=== PATIENT | male | born 1960 | race Caucasian/White ===

== ENCOUNTER 2024-07-07 19:57 | Inpatient (IN) ==
[2024-07-07] MEDS: SODIUM CHLORIDE 0.9% 500 ML IV ONE (20:19)
[2024-07-07] MEDS: MAGNESIUM SULFATE / D5W 1 GM/100 ML BAG IV STA (20:19)
[2024-07-07] MEDS: dilTIAZem HCl 5 MG/ML 5 ML VIAL IV STA ×2 (20:19→21:11)
[2024-07-07 20:32] LABS: Basophils # (auto) 0.02 K/uL (0.00-0.20); Basophils % (auto) 0.2 %; Eosinophils # (auto) 0.04 K/uL (0.00-0.50); Eosinophils % (auto) 0.5 %; Hematocrit (blood only) 44.3 % (42.0-52.0); Hemoglobin 15.3 g/dl (14.0-18.0); Immature Granulocytes # (auto) 0.03 K/uL (0.01-0.20); Immature Granulocytes % (auto) 0.4 %; Lymphocytes # (auto) 0.82 K/uL (1.20-3.40); Lymphocytes % (auto) 9.6 %; Mean Corpuscular Hemoglobin 30.1 pg (25.0-34.0); Mean Corpuscular Hgb Conc 34.5 g/dL (32.0-36.0); Mean Corpuscular Volume 87.2 fL (80.0-100.0); Mean Platelet Volume 9.1 fL (9.4-12.4); Monocytes # (auto) 0.97 K/uL (0.11-0.59); Monocytes % (auto) 11.4 %; Neutrophils # (auto) 6.65 K/uL (1.40-6.50); Neutrophils % (auto) 77.9 %; Platelet Count 275 K/uL (130-400); RDW Coefficient of Variation 11.6 % (11.5-14.5); RDW Standard Deviation 37.3 fL (36.4-46.3); Red Blood Count 5.08 M/uL (4.70-6.10); White Blood Count 8.53 K/ul (4.8-10.8)
[2024-07-07] MEDS: LORazepam 1 MG/1 ML SYR ED Inj Use IV STA (20:37)
--- NOTE | 2024-07-07 20:43 | Emergency Department Note ---
Impression & Plan Atrial fibrillation with rapid ventricular response, New onset a-fib, Heart palpitations, Anxiety ED Provider Note NAME: BETTY ENRIQUEZ AGE: 64 SEX: M : 1960 ARRIVES VIA: Walk-In INFORMANT: Patient, ED PROVIDER(S): Mario Andrea DO CHIEF COMPLAINT: Palpitations HPI: The patient is a 64-year-old male who presented to the emergency department for an evaluation of palpitations. The patient started noticing palpitations over the course the last 24 hours. He denies having any chest pain. He does feel anxiety. He denies having any shortness of breath or leg swelling. He has no history of similar dysrhythmia in the past. ROS: See above HPI for pertinent positives & negatives. A total of 10 systems reviewed and were otherwise negative. PAST MEDICAL HISTORY: See Below PAST SURGICAL HISTORY: See Below FAMILY HISTORY: See Below SOCIAL HISTORY: See Below HOME MEDICATIONS: See Below ALLERGIES: See Below VITALS: See Below PHYSICAL EXAMINATION: GENERAL: Patient is awake alert in no acute distress patient is resting comfortably and showing no signs of anxiety EYES: The conjunctivae are clear. The pupils are round and reactive. EARS, NOSE, MOUTH AND THROAT: The nose is without any evidence of any deformity. Mucous membranes are moist. Tongue is midline. NECK: The neck is nontender and supple. RESPIRATORY: Normal respiratory effort is noted there is no evidence of wheezing rhonchi or rales CARDIOVASCULAR: Tachycardia cardiac and regular heart sounds were noted to auscultation. There is no definite murmur. GASTROINTESTINAL: The abdomen is soft. Abdomen is nontender. MUSCULOSKELETAL/EXTREMITIES: There is no evidence of gross deformity full range of motion is noted in the hips and shoulders. SKIN: There is no obvious evidence of any rash. There are no petechiae, pallor or cyanosis noted. NEUROLOGIC: Patient is awake alert and oriented x3 MEDICAL DECISION MAKING: The is a 64-year-old male who presented to the emergency department for an evaluation of palpitations. The patient was found to be in rapid atrial fibrillation when he first arrived at the emergency department. He did have 1 episode where he may have had SVT. He was treated with IV Cardizem IV fluids and IV magnesium in the emergency department. On reevaluation his rate had improved but he continued to be in atrial fibrillation. I discussed the patient's laboratory and radiographic studies with him. At this time I do feel the patient would be a better candidate for inpatient management especially given his ongoing atrial fibrillation. It is unclear exactly when this started. The patient may require further workup as well as treatment with anticoagulants. I discussed the patient's diagnosis with him. I discussed his condition with the on-call [facility]. Triage Nursing notes reviewed. Prior medical records reviewed Vital Signs: reviewed and remarkable for tachycardia. Differential diagnosis: Premature contractions, electrolyte abnormality, cardiac dysrhythmia, thyroid dysfunction, pulmonary embolism, infection, gastrointestinal, as well as other pathologies. ER treatment provided: See below Diagnostics interpreted by me: ECG: EKG was obtained in the emergency department. My interpretation is atrial fibrillation at 132 bpm. No PVCs were noted. Nonspecific ST depressions were noted. No previous tracing was available. A second EKG was obtained in the emergency department. My interpretation is atrial fibrillation at 147 bpm. There is no ectopy. Continued ST depressions were noted. This compares similar to the initial tracing. Cardiac Monitoring: An order was placed for continuous cardiac monitoring. The monitor shows a rate of 120 bpm with atrial fibrillation and RVR. Laboratory studies: As stated above and show below. Imaging studies: See below. Radiographic imaging was reviewed by myself Consultation(s): I discussed this case with Dr. Mike who is on-call for the [facility] group. ED COURSE: Procedures: none Critical Care: I have personally spent greater than 35 minutes of critical care time in the direct management of this patient. This includes bedside care, interpretation of diagnostic studies, and testing, discussion with consultants, patient, and family members, and other required patient management activities. This 35 minutes is in excess of all separately billable procedures. Past Med/Surg History Problem List (Updated 07/08/24 @ 00:42 by Mairo Andrea DO) Anxiety (Acute) Heart palpitations (Acute) Atrial fibrillation with rapid ventricular response (Acute) New onset a-fib (Acute) Premature ejaculation Erectile dysfunction Cyst of epididymis determined by ultrasound Medical History Clavicle fracture Epididymitis Surgical History History of mandibular surgery Family History Father Prostate cancer Hypertension Heart disease Mother Hypertension Social History Smoking Status: Never smoker Tobacco Type: Declines Hx Alcohol Use: Yes Alcohol type: beer and wine Hx Substance Use: No Preferred Language: Marshallese Communication Ability: Effective Snowboarder Required: No Beliefs That Will Affect Care: None Current Living Situation: Parent Other Information That Helps Us Care for You: No Feels Safe at Home: Yes Safety Concerns: Feels Safe At This Time Assistive Devices: Glasses Allergies Allergies Allergy/AdvReac Type Severity Reaction Status Date / Time amoxicillin Allergy Mild Verified 05/22/23 10:13 sulfamethoxazole AdvReac Mild Verified 05/22/23 10:13 [From Bactrim] trimethoprim [From Bactrim] AdvReac Mild Verified 05/22/23 10:13 Home Meds Home Medications Medication Instructions Recorded Confirmed amlodipine 5 mg tablet 5 mg PO DAILY 07/07/24 07/07/24 losartan 50 mg tablet 50 mg PO DAILY 07/07/24 07/07/24 Results & Data (ED) Vital Signs Vital Signs - 24 hr 07/07/24 20:05 07/07/24 20:11 07/07/24 20:19 Temperature 36.6 C Temperature Source Temporal Artery Scan Pulse Rate 147 H 140 H Pulse Rate [Apical] Pulse Rate from SpO2 Sensor Respiratory Rate 18 Respiratory Depth Normal Blood Pressure 175/100 H Blood Pressure [Left Arm] Blood Pressure Mean 125 Blood Pressure Mean [Left Arm] Pulse Oximetry 97 Oxygen Delivery Method Room Air Room Air Sepsis Recent Fever Within 48 Hours No Sepsis New/Unexplained Change in Mental Status No Sepsis Action Taken by Nursing No Action Required 07/07/24 20:21 07/07/24 20:23 07/07/24 20:24 Temperature Temperature Source Pulse Rate 164 H 193 H Pulse Rate [Apical] 145 H Pulse Rate from SpO2 Sensor Respiratory Rate 20 Respiratory Depth Blood Pressure Blood Pressure [Left Arm] 185/110 H Blood Pressure Mean Blood Pressure Mean [Left Arm] 135 Pulse Oximetry 98 Oxygen Delivery Method Room Air Sepsis Recent Fever Within 48 Hours Sepsis New/Unexplained Change in Mental Status Sepsis Action Taken by Nursing 07/07/24 20:39 07/07/24 20:42 07/07/24 20:45 Temperature Temperature Source Pulse Rate 158 H 117 H 117 H Pulse Rate [Apical] Pulse Rate from SpO2 Sensor 158 H 123 H Respiratory Rate 17 18 Respiratory Depth Blood Pressure 173/108 H 160/101 H Blood Pressure [Left Arm] Blood Pressure Mean 129 120 Blood Pressure Mean [Left Arm] Pulse Oximetry 97 96 Oxygen Delivery Method Sepsis Recent Fever Within 48 Hours Sepsis New/Unexplained Change in Mental Status Sepsis Action Taken by Nursing 07/07/24 20:48 07/07/24 21:03 07/07/24 21:12 Temperature Temperature Source Pulse Rate 110 H 135 H 142 H Pulse Rate [Apical] Pulse Rate from SpO2 Sensor 100 H 127 H Respiratory Rate 20 24 19 Respiratory Depth Blood Pressure 167/79 H 138/89 173/99 H Blood Pressure [Left Arm] Blood Pressure Mean 108 105 123 Blood Pressure Mean [Left Arm] Pulse Oximetry 94 96 Oxygen Delivery Method Sepsis Recent Fever Within 48 Hours Sepsis New/Unexplained Change in Mental Status Sepsis Action Taken by Nursing 07/07/24 21:25 07/07/24 21:27 07/07/24 21:36 Temperature Temperature Source Pulse Rate 122 H 113 H 99 H Pulse Rate [Apical] Pulse Rate from SpO2 Sensor 107 H 108 H 97 H Respiratory Rate 20 14 13 Respiratory Depth Blood Pressure 155/99 H 142/95 H Blood Pressure [Left Arm] Blood Pressure Mean 126 110 Blood Pressure Mean [Left Arm] Pulse Oximetry 95 96 94 Oxygen Delivery Method Sepsis Recent Fever Within 48 Hours Sepsis New/Unexplained Change in Mental Status Sepsis Action Taken by Nursing 07/07/24 21:51 Temperature Temperature Source Pulse Rate 124 H Pulse Rate [Apical] Pulse Rate from SpO2 Sensor 110 H Respiratory Rate 18 Respiratory Depth Blood Pressure 143/87 H Blood Pressure [Left Arm] Blood Pressure Mean 105 Blood Pressure Mean [Left Arm] Pulse Oximetry 97 Oxygen Delivery Method Sepsis Recent Fever Within 48 Hours Sepsis New/Unexplained Change in Mental Status Sepsis Action Taken by Half-Way Medications Current Medication List: was personally reviewed by me Laboratory Data Attestation: I reviewed the patient's lab results. 07/07/24 20:17 07/07/24 20:17 Lab Results 07/07/24 Range/Units 20:17 WBC 8.53 (4.8-10.8) K/ul RBC 5.08 (4.70-6.10) M/uL Hgb 15.3 (14.0-18.0) g/dl Hct 44.3 (42.0-52.0) % MCV 87.2 (80.0-100.0) fL MCH 30.1 (25.0-34.0) pg MCHC 34.5 (32.0-36.0) g/dL RDW Std Deviation 37.3 (36.4-46.3) fL RDW Coeff of Charisma 11.6 (11.5-14.5) % Plt Count 275 (130-400) K/uL MPV 9.1 L (9.4-12.4) fL Immature Gran % (Auto) 0.4 % Neut % (Auto) 77.9 % Lymph % (Auto) 9.6 % [place] % (Auto) 11.4 % Eos % (Auto) 0.5 % Baso % (Auto) 0.2 % Neut # (Auto) 6.65 H (1.40-6.50) K/uL Lymph # (Auto) 0.82 L (1.20-3.40) K/uL [place] # (Auto) 0.97 H (0.11-0.59) K/uL Eos # (Auto) 0.04 (0.00-0.50) K/uL Baso # (Auto) 0.02 (0.00-0.20) K/uL Immature Gran # (Auto) 0.03 (0.01-0.20) K/uL PT 10.6 (9.0-12.0) Seconds INR 1.0 (0.9-1.1) APTT 26 (21-31) Seconds PTT Ratio 1.0 Sodium 135 L (136-145) mmol/L Potassium 3.4 L (3.5-5.1) mmol/L Chloride 100 (98-107) mmol/L Carbon Dioxide 28 (21-32) mmol/L Anion Gap 7 (3-11) BUN 13 (6-23) mg/dl Creatinine 0.87 (0.6-1.4) mg/dl Est Cr Clr Drug Dosing 90.2 ml/min eGFR 95.76 BUN/Creatinine Ratio 14.9 (10-20) Glucose 108 H (70-99(Fasting)) mg/dl Estimat Average Glucose 111 mg/dl Hemoglobin A1c 5.5 (4.5-5.6) % Calcium 9.2 (8.6-10.3) mg/dl Magnesium 2.3 (1.7-2.4) mg/dl Total Bilirubin 0.5 (0.2-1.0) mg/dl AST 13 (13-39) U/L ALT 15 (7-52) U/L Alkaline Phosphatase 128 H (34-104) U/L Troponin I High Sens 8.4 (0-20) pg/ml Total Protein 8.5 H (6.0-8.3) gm/dl Albumin 4.4 (3.4-5.0) gm/dl Globulin 4.1 H (2.5-4.0) gm/dl Albumin/Globulin Ratio 1.1 (0.9-2) TSH 1.951 (0.300-4.500) uIu/ml Administered Medications Heparin Sodium/Dextrose (Heparin 75340 Unit/500 Ml) 25,000 units in 500 mls @ 18 mls/hr IV .Q24H [facility]; Protocol Stop: 08/06/24 23:44 Last Admin: 07/08/24 00:31 Dose: 900 units/hr, 18 mls/hr Documented By: CHARL[place]TE Co-signed By: LUBA Discontinued Medications Diltiazem HCl (Diltiazem Hcl 5 Mg/Ml 5 Ml Vial) 10 mg IV NOW STA Stop: 07/07/24 20:14 Last Admin: 07/07/24 20:19 Dose: 10 mg Documented By: QGV Co-signed By: MYRA Diltiazem HCl (Diltiazem Hcl 5 Mg/Ml 5 Ml Vial) 10 mg IV NOW STA Stop: 07/07/24 21:03 Last Admin: 07/07/24 21:11 Dose: 10 mg Documented By: JOVITA Co-signed By: Sodium Chloride (Nss) 500 mls @ 999 mls/hr IV .Q31M ONE Stop: 07/07/24 20:43 Last Infusion: 07/07/24 21:30 Dose: Infused Documented By: Admin: 07/07/24 20:19 Dose: 999 mls/hr Documented By: QGV Magnesium Sulfate/Dextrose (Magnesium Sulfate / D5w) 1 gm in 100 mls @ 100 mls/hr IV NOW STA Stop: 07/07/24 21:13 Last Infusion: 07/07/24 21:30 Dose: Infused Documented By: Admin: 07/07/24 20:19 Dose: 100 mls/hr Documented By: QGV Lorazepam (Lorazepam 1 Mg/1 Ml Syr Ed Inj Use) 0.5 mg IV ONE STA Stop: 07/07/24 20:30 Last Admin: 07/07/24 20:37 Dose: 0.5 mg Documented By: JOVITA Metoprolol Tartrate (Metoprolol Tartrate 25 Mg Tab) 25 mg PO NOW STA Stop: 07/07/24 21:55 Last Admin: 07/07/24 23:39 Dose: Not Given Documented By: KRT Metoprolol Tartrate (Metoprolol Tartrate 1 Mg/Ml Vial) 5 mg IV NOW STA Stop: 07/07/24 22:39 Last Admin: 07/07/24 23:09 Dose: 5 mg Documented By: KRT Potassium Chloride (Potassium Chloride Crtab 20 Meq Tabcr) 40 meq PO NOW STA Stop: 07/07/24 21:55 Last Admin: 07/08/24 00:34 Dose: 40 meq Documented By: CHARLOTTE Imaging Data Attestation: I personally reviewed and interpreted this imaging study as follows: My Impression: 1 view chest x-ray was obtained in the emergency department. My interpretation is no free air or definite infiltrate, final report below. Radiologist's Impression: Chest X-Ray 07/07/24 20:14 Exam(s): XR CXR 1 VIEW EXAM: XR Chest, 1 View CLINICAL HISTORY: Reason for exam: Dysrhythmia. TECHNIQUE: Frontal view of the chest. COMPARISON: No relevant prior studies available. FINDINGS: Lungs: Mild peribronchial thickening of the central bronchi with increased interstitial opacities in the lower lobes. No consolidation. Pleural space: Unremarkable. No pneumothorax. Heart: Unremarkable. No cardiomegaly. Mediastinum: Unremarkable. Normal mediastinal contour. Bones/joints: Unremarkable. No acute fracture. IMPRESSION: Bronchitis, which may be of infectious or inflammatory etiologies. No consolidation or pleural effusion. Electronically signed by: Angela France MD 07/07/24 22:16 PM Discharge Plan Visit Data Chief Complaint: Tachycardia Stated Complaint: ACCELERATED HEART RATE LAST 2 DAYS, STRESS ED Provider: Mario Andrea Discharge Problem: Atrial fibrillation with rapid ventricular response, New onset a-fib, Heart palpitations, Anxiety Patient Disposition: Admitted As Inpatient Discharge Instructions Interventions: ED Discharge Assessment Last Done: 07/07/24 22:35
[2024-07-07 20:48] LABS: Albumin Globulin Ratio 1.1 (0.9-2); Albumin Level 4.4 gm/dl (3.4-5.0); BUN Creatinine Ratio 14.9 (10-20); Bilirubin,Total 0.5 mg/dl (0.2-1.0); Calcium 9.2 mg/dl (8.6-10.3); Creatinine Clr Calc Pharmacy 90.2 ml/min; Globulin 4.1 gm/dl (2.5-4.0); Magnesium 2.3 mg/dl (1.7-2.4); Potassium 3.4 mmol/L (3.5-5.1); Total Protein 8.5 gm/dl (6.0-8.3)
[2024-07-07 20:56] LABS: Troponin I High Sensitivity 8.4 pg/ml (0-20)
[2024-07-07 21:05] LABS: Thyroid Stimulating Hormone 1.951 uIu/ml (0.300-4.500)
[2024-07-07 21:11] LABS: Partial Thromboplastin Time 26 Seconds (21-31); Prothrombin Time 10.6 Seconds (9.0-12.0)
--- NOTE | 2024-07-07 22:00 | History & Physical Report ---
Date of Service July 07, 2024 Assessment & Plan (1) New onset a-fib: Plan: Likely secondary to uncontrolled hypertension secondary to anxiety Rule out viral illness Hypokalemia Hyperglycemia rule out DM past tobacco use Admit to PCU EKG to document A-fib Add beta-tristan to BP regimen/for rate control IV heparin for thromboembolic prophylaxis TTE, Cardiology consult Re: New onset A-fib Anxiolytic as needed Bio[employer] respiratory panel Replace potassium Check hemoglobin A1c DVT prophylaxis. Lovenox while patient refusing IV heparin Full code Text document was generated using [employer] voice recognition software. It may contain grammatical or spelling errors. Kindly contact undersigned for clarification of any documentation item in question. History of Present Illness Chief Complaint: Palpitations Primary Care Provider: Jerome Marie History obtained from patient, family, and records. Medical history significant for hypertension,, urticaria as per records, past tobacco use. Few days history of sinus congestion and dry cough symptoms. Patient later experienced intermittent palpitations without chest pain/SOB. Denies headache symptoms. Significant stress from recent break-up with his girlfriend. Denies suicidality. Patient noted to be in rapid A-fib at some point during ER evaluation. No prior episodes before as per patient although his mother has A-fib with history of ablation. IV Cardizem administered at the ER. Highest SBP of 180s documented at the ER. 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 Allergies Allergy/AdvReac Type Severity Reaction Status Date / Time amoxicillin Allergy Mild Verified 05/22/23 10:13 sulfamethoxazole AdvReac Mild Verified 05/22/23 10:13 [From Bactrim] trimethoprim [From Bactrim] AdvReac Mild Verified 05/22/23 10:13 Home Medications Medication Instructions Recorded Confirmed Type amlodipine 5 mg tablet 5 mg PO DAILY 07/07/24 07/07/24 History losartan 50 mg tablet 50 mg PO DAILY 07/07/24 07/07/24 History Past Med/Surg History Problem List (Updated 07/07/24 @ 23:12 by Fly Mike MD) New onset a-fib Premature ejaculation Erectile dysfunction Cyst of epididymis determined by ultrasound Medical History Clavicle fracture Epididymitis Surgical History History of mandibular surgery Family History Father Prostate cancer Hypertension Heart disease Mother Hypertension Social History Smoking Status: Never smoker Tobacco Type: Declines Hx Alcohol Use: Yes Alcohol type: beer and wine Hx Substance Use: No Preferred Language: Bahraini Communication Ability: Effective Chili Maker Required: No Beliefs That Will Affect Care: None Current Living Situation: Parent Other Information That Helps Us Care for You: No Feels Safe at Home: Yes Safety Concerns: Feels Safe At This Time Assistive Devices: Glasses Review of Systems Review of Systems: As per HPI, all other systems reviewed and negative Physical Exam Physical Exam: GENERAL: Anxious, no respiratory distress SKIN: Normal color, warm HEENT: Bespectacled, pink palpebral conjunctivae, no ptosis, dry buccal mucosa NECK : Supple, no tenderness CHEST : CTA, no tenderness HEART : Irregular, no obvious murmurs ABDOMEN: no distention, nontender EXTREMITIES : No LE swelling/tenderness, palpable pulses, no other conspicuous deformities noted NEUROLOGIC : Coherent, no facial asymmetry, no other gross focality Results & Data Results & Data Vital Signs (Past 12 Hours) Vital Signs Temp Pulse Pulse Resp BP BP Pulse Ox 07/07/24 21:27 113 H 14 96 07/07/24 21:25 122 H 20 155/99 H 95 07/07/24 21:12 142 H 19 173/99 H 96 07/07/24 21:03 135 H 24 138/89 07/07/24 20:48 110 H 20 167/79 H 94 07/07/24 20:45 117 H 07/07/24 20:42 117 H 18 160/101 H 96 07/07/24 20:39 158 H 17 173/108 H 97 07/07/24 20:24 193 H 07/07/24 20:23 145 H 20 185/110 H 98 07/07/24 20:21 164 H 07/07/24 20:19 07/07/24 20:11 140 H 07/07/24 20:05 36.6 C 147 H 18 175/100 H 97 O2 Del Method 07/07/24 21:27 07/07/24 21:25 07/07/24 21:12 07/07/24 21:03 07/07/24 20:48 07/07/24 20:45 07/07/24 20:42 07/07/24 20:39 07/07/24 20:24 07/07/24 20:23 Room Air 07/07/24 20:21 07/07/24 20:19 Room Air 07/07/24 20:11 07/07/24 20:05 Room Air Laboratory Results Laboratory Results WBC 8.53 K/ul (4.8-10.8) 07/07/24 20:17 RBC 5.08 M/uL (4.70-6.10) 07/07/24 20:17 Hgb 15.3 g/dl (14.0-18.0) 07/07/24 20:17 Hct 44.3 % (42.0-52.0) 07/07/24 20:17 MCV 87.2 fL (80.0-100.0) 07/07/24 20:17 MCH 30.1 pg (25.0-34.0) 07/07/24 20:17 MCHC 34.5 g/dL (32.0-36.0) 07/07/24 20:17 RDW Std Deviation 37.3 fL (36.4-46.3) 07/07/24 20:17 RDW Coeff of Charisma 11.6 % (11.5-14.5) 07/07/24 20:17 Plt Count 275 K/uL (130-400) 07/07/24 20:17 MPV 9.1 fL (9.4-12.4) L 07/07/24 20:17 Immature Gran % (Auto) 0.4 % 07/07/24 20:17 Neut % (Auto) 77.9 % 07/07/24 20:17 Lymph % (Auto) 9.6 % 07/07/24 20:17 [place] % (Auto) 11.4 % 07/07/24 20:17 Eos % (Auto) 0.5 % 07/07/24 20:17 Baso % (Auto) 0.2 % 07/07/24 20:17 Neut # (Auto) 6.65 K/uL (1.40-6.50) H 07/07/24 20:17 Lymph # (Auto) 0.82 K/uL (1.20-3.40) L 07/07/24 20:17 [place] # (Auto) 0.97 K/uL (0.11-0.59) H 07/07/24 20:17 Eos # (Auto) 0.04 K/uL (0.00-0.50) 07/07/24 20:17 Baso # (Auto) 0.02 K/uL (0.00-0.20) 07/07/24 20:17 Immature Gran # (Auto) 0.03 K/uL (0.01-0.20) 07/07/24 20:17 PT 10.6 Seconds (9.0-12.0) 07/07/24 20:17 INR 1.0 (0.9-1.1) 07/07/24 20:17 APTT 26 Seconds (21-31) 07/07/24 20:17 PTT Ratio 1.0 07/07/24 20:17 Sodium 135 mmol/L (136-145) L 07/07/24 20:17 Potassium 3.4 mmol/L (3.5-5.1) L 07/07/24 20:17 Chloride 100 mmol/L (98-107) 07/07/24 20:17 Carbon Dioxide 28 mmol/L (21-32) 07/07/24 20:17 Anion Gap 7 (3-11) 07/07/24 20:17 BUN 13 mg/dl (6-23) 07/07/24 20:17 Creatinine 0.87 mg/dl (0.6-1.4) 07/07/24 20:17 Est Cr Clr Drug Dosing 90.2 ml/min 07/07/24 20:17 eGFR 95.76 07/07/24 20:17 BUN/Creatinine Ratio 14.9 (10-20) 07/07/24 20:17 Glucose 108 mg/dl (70-99(Fasting)) H 07/07/24 20:17 Calcium 9.2 mg/dl (8.6-10.3) 07/07/24 20:17 Magnesium 2.3 mg/dl (1.7-2.4) 07/07/24 20:17 Total Bilirubin 0.5 mg/dl (0.2-1.0) 07/07/24 20:17 AST 13 U/L (13-39) 07/07/24 20:17 ALT 15 U/L (7-52) 07/07/24 20:17 Alkaline Phosphatase 128 U/L (34-104) H 07/07/24 20:17 Troponin I High Sens 8.4 pg/ml (0-20) 07/07/24 20:17 Total Protein 8.5 gm/dl (6.0-8.3) H 07/07/24 20:17 Albumin 4.4 gm/dl (3.4-5.0) 07/07/24 20:17 Globulin 4.1 gm/dl (2.5-4.0) H 07/07/24 20:17 Albumin/Globulin Ratio 1.1 (0.9-2) 07/07/24 20:17 TSH 1.951 uIu/ml (0.300-4.500) 07/07/24 20:17 Diagnostic Findings Chest x-ray as per my interpretation interstitial infiltrates EKG as per my interpretation : Rate 150, sinus tachycardia, normal axis, LVH, ST depression lateral leads Code Status & VTE Plan VTE Prophylaxis Plan VTE Prophylaxis will be ordered: Yes
--- NOTE | 2024-07-07 22:17 | XRay Report ---
Exam(s): XR CXR 1 VIEW EXAM: XR Chest, 1 View CLINICAL HISTORY: Reason for exam: Dysrhythmia. TECHNIQUE: Frontal view of the chest. COMPARISON: No relevant prior studies available. FINDINGS: Lungs: Mild peribronchial thickening of the central bronchi with increased interstitial opacities in the lower lobes. No consolidation. Pleural space: Unremarkable. No pneumothorax. Heart: Unremarkable. No cardiomegaly. Mediastinum: Unremarkable. Normal mediastinal contour. Bones/joints: Unremarkable. No acute fracture. IMPRESSION: Bronchitis, which may be of infectious or inflammatory etiologies. No consolidation or pleural effusion. Electronically signed by: Angela France MD 07/07/24 22:16 PM
[2024-07-07 22:39] LABS: Estimated Average Glucose 111 mg/dl; Hemoglobin A1C 5.5 % (4.5-5.6)
[2024-07-07] MEDS ORDERED: traMADol HCL 50 MG TABLET PO PRN (22:40)
[2024-07-07] MEDS ORDERED: PROMETHAZINE 6.25 MG/50.25 ML BAG IV PRN (22:40)
[2024-07-07] MEDS ORDERED: ACETAMINOPHEN 325 MG TAB PO PRN (22:40)
[2024-07-07] MEDS: METOPROLOL TARTRATE 1 MG/ML VIAL IV STA (23:09)
[2024-07-07] MEDS: METOPROLOL TARTRATE 25 MG TAB PO STA (23:39)
[2024-07-08] MEDS: HEPARIN 25000 UNIT/500 ML 25,000 UNITS/500 ML BAG IV SCH (00:31)
[2024-07-08] MEDS: POTASSIUM CHLORIDE CRTAB 20 MEQ TABCR PO STA (00:34)
[2024-07-08] MEDS: NSS + 20MEQ KCL 20 MEQ/1,000 ML BAG IV ONE (01:08)
[2024-07-08] MEDS: Heparin IV Adult Wt-Based Low-Dose *NO* INITIAL Bolus Protocol IV STA (01:22)
[2024-07-08 06:54] LABS: Basophils # (auto) 0.01 K/uL (0.00-0.20); Basophils % (auto) 0.1 %; Eosinophils # (auto) 0.05 K/uL (0.00-0.50); Eosinophils % (auto) 0.6 %; Hematocrit (blood only) 38.8 % (42.0-52.0); Hemoglobin 13.3 g/dl (14.0-18.0); Immature Granulocytes # (auto) 0.03 K/uL (0.01-0.20); Immature Granulocytes % (auto) 0.4 %; Lymphocytes # (auto) 1.29 K/uL (1.20-3.40); Lymphocytes % (auto) 16.2 %; Mean Corpuscular Hemoglobin 29.8 pg (25.0-34.0); Mean Corpuscular Hgb Conc 34.3 g/dL (32.0-36.0); Mean Platelet Volume 9.2 fL (9.4-12.4); Monocytes # (auto) 0.91 K/uL (0.11-0.59); Monocytes % (auto) 11.4 %; Neutrophils # (auto) 5.67 K/uL (1.40-6.50); Neutrophils % (auto) 71.3 %; Platelet Count 247 K/uL (130-400); RDW Coefficient of Variation 11.8 % (11.5-14.5); RDW Standard Deviation 37.6 fL (36.4-46.3); Red Blood Count 4.46 M/uL (4.70-6.10); White Blood Count 7.96 K/ul (4.8-10.8)
[2024-07-08 07:14] LABS: Calcium 9.1 mg/dl (8.6-10.3); Creatinine Clr Calc Pharmacy 104.6 ml/min; Potassium 4.1 mmol/L (3.5-5.1)
[2024-07-08 07:16] LABS: ANTI-Xa, UFH(UnfractionatedHep < 0.10 IU/ml (0.3-0.7)
--- NOTE | 2024-07-08 08:29 | Hospitalist Progress Note ---
Date of Service July 08, 2024 Assessment & Plan (1) New onset a-fib: Plan: Poss. secondary to uncontrolled hypertension secondary to anxiety Rule out viral illness Resp biofire negative CXR w/ poss. bronchitis Pt has some dry cough, seems resolving Admitted to PCU EKG Added beta-tristan to BP regimen/for rate control IV heparin for thromboembolic prophylaxis TTE - EF 60-65%, moderate concentric LVH, LA mildly dilated, mild to moderate regurg., doppler findings do not suggest pulm. HTN Cardiology consulted Re: New onset A-fib Anxiolytic as needed Hypokalemia replace and monitor Hyperglycemia - rule out DM, current A1c 5.5% past tobacco use DVT prophylaxis. IV heparin Full code Admission and Anticipated Discharge Date Admission Date: July 07, 2024 Subjective Pt seen in follow up of Afib Resp. biofire ordered on admission - negative Currently sitting up in bed in NAD, pt's mother present at the bedside Pt denies chest pain, or shortness of breath, denies dizziness, lightheadedness +cough , nonproductive seems resolving Review of Systems Review of Systems: All systems reviewed & are unremarkable except as noted in Subjective Physical Exam Physical Exam: GENERAL: WD/WN in NAD HEENT: NC/AT, bespectacled, pink palpebral conjunctivae NECK : Supple, no tenderness CHEST : CTA, no tenderness HEART : Irregular, no obvious murmurs ABDOMEN: no distention, nontender EXTREMITIES : No LE swelling/tenderness, palpable pulses NEUROLOGIC : Coherent, no facial asymmetry, speech fluent, moves extremities SKIN: warm, dry Results & Data Results & Data Vital Signs (Past 12 Hours) Vital Signs Temp Pulse Pulse Resp BP BP Pulse Ox 07/08/24 07:48 36.7 C 113 H 18 161/84 H 95 07/08/24 03:39 36.5 C 90 20 129/80 97 07/07/24 23:24 92 H 126/84 07/07/24 23:22 87 07/07/24 23:09 36.7 C 120 H 16 159/81 H 96 07/07/24 22:35 07/07/24 22:21 165 H 17 155/97 H 96 07/07/24 22:06 117 H 19 135/88 95 07/07/24 22:02 115 H 15 147/83 H 95 07/07/24 21:51 124 H 18 143/87 H 97 07/07/24 21:36 99 H 13 142/95 H 94 07/07/24 21:27 113 H 14 96 07/07/24 21:25 122 H 20 155/99 H 95 07/07/24 21:12 142 H 19 173/99 H 96 07/07/24 21:03 135 H 24 138/89 07/07/24 20:48 110 H 20 167/79 H 94 07/07/24 20:45 117 H 07/07/24 20:42 117 H 18 160/101 H 96 07/07/24 20:39 158 H 17 173/108 H 97 O2 Del Method 07/08/24 07:48 Room Air 07/08/24 03:39 Room Air 07/07/24 23:24 07/07/24 23:22 07/07/24 23:09 Room Air 07/07/24 22:35 Room Air 07/07/24 22:21 07/07/24 22:06 07/07/24 22:02 07/07/24 21:51 07/07/24 21:36 07/07/24 21:27 07/07/24 21:25 07/07/24 21:12 07/07/24 21:03 07/07/24 20:48 07/07/24 20:45 07/07/24 20:42 07/07/24 20:39 Laboratory Results 07/08/24 07/07/24 Range/Units 06:33 20:17 WBC 7.96 8.53 (4.8-10.8) K/ul RBC 4.46 L 5.08 (4.70-6.10) M/uL Hgb 13.3 L 15.3 (14.0-18.0) g/dl Hct 38.8 L 44.3 (42.0-52.0) % MCV 87.0 87.2 (80.0-100.0) fL MCH 29.8 30.1 (25.0-34.0) pg MCHC 34.3 34.5 (32.0-36.0) g/dL RDW Std Deviation 37.6 37.3 (36.4-46.3) fL RDW Coeff of Charisma 11.8 11.6 (11.5-14.5) % Plt Count 247 275 (130-400) K/uL MPV 9.2 L 9.1 L (9.4-12.4) fL Immature Gran % (Auto) 0.4 0.4 % Neut % (Auto) 71.3 77.9 % Lymph % (Auto) 16.2 9.6 % [place]man % (Auto) 11.4 11.4 % Eos % (Auto) 0.6 0.5 % Baso % (Auto) 0.1 0.2 % Neut # (Auto) 5.67 6.65 H (1.40-6.50) K/uL Lymph # (Auto) 1.29 0.82 L (1.20-3.40) K/uL [place] # (Auto) 0.91 H 0.97 H (0.11-0.59) K/uL Eos # (Auto) 0.05 0.04 (0.00-0.50) K/uL Baso # (Auto) 0.01 0.02 (0.00-0.20) K/uL Immature Gran # (Auto) 0.03 0.03 (0.01-0.20) K/uL PT 10.6 (9.0-12.0) Seconds INR 1.0 (0.9-1.1) APTT 26 (21-31) Seconds PTT Ratio 1.0 Heparin Anti-Xa, Unfract < 0.10 L (0.3-0.7) IU/ml Sodium 137 135 L (136-145) mmol/L Potassium 4.1 D 3.4 L (3.5-5.1) mmol/L Chloride 105 100 (98-107) mmol/L Carbon Dioxide 27 28 (21-32) mmol/L Anion Gap 5 7 (3-11) BUN 9 13 (6-23) mg/dl Creatinine 0.75 0.87 (0.6-1.4) mg/dl Est Cr Clr Drug Dosing 104.6 90.2 ml/min eGFR 100.15 95.76 BUN/Creatinine Ratio 12.0 14.9 (10-20) Glucose 104 H 108 H (70-99(Fasting)) mg/dl Estimat Average Glucose 111 mg/dl Hemoglobin A1c 5.5 (4.5-5.6) % Calcium 9.1 9.2 (8.6-10.3) mg/dl Magnesium 2.3 (1.7-2.4) mg/dl Total Bilirubin 0.5 (0.2-1.0) mg/dl AST 13 (13-39) U/L ALT 15 (7-52) U/L Alkaline Phosphatase 128 H (34-104) U/L Troponin I High Sens 8.4 (0-20) pg/ml Total Protein 8.5 H (6.0-8.3) gm/dl Albumin 4.4 (3.4-5.0) gm/dl Globulin 4.1 H (2.5-4.0) gm/dl Albumin/Globulin Ratio 1.1 (0.9-2) TSH 1.951 (0.300-4.500) uIu/ml Medications Administered Current Inpatient Medications Acetaminophen (Acetaminophen 325 Mg Tab) 650 mg PO QID PRN PRN Reason: pain/fever Stop: 08/06/24 22:39 Amlodipine Besylate (Amlodipine Besylate 5 Mg Tab) 5 mg PO DAILY [facility] Stop: 08/07/24 08:59 Potassium Chloride/Sodium Chloride (Normal Saline W/20 Meq Kcl) 20 meq in 1,000 mls @ 75 mls/hr IV .[id number] ONE Stop: 07/08/24 11:14 Last Admin: 07/08/24 01:08 Dose: 75 mls/hr Promethazine HCl (Phenergan) 6.25 mg in 50.25 mls @ 201 mls/hr IV Q6H PRN PRN Reason: Nausea And Vomiting Stop: 08/06/24 22:39 Heparin Sodium/Dextrose (Heparin 88396 Unit/500 Ml) 25,000 units in 500 mls @ 18 mls/hr IV .Q24H RYAN; Protocol Stop: 08/06/24 23:44 Last Admin: 07/08/24 00:31 Dose: 900 units/hr, 18 mls/hr Lorazepam (Lorazepam 0.5 Mg Tab) 0.5 mg PO QID PRN PRN Reason: Anxiety Stop: 08/06/24 22:39 Losartan Potassium (Losartan Potassium 50 Mg Tab) 50 mg PO DAILY [facility] Stop: 08/07/24 08:59 Metoprolol Tartrate (Metoprolol Tartrate 25 Mg Tab) 25 mg PO BID [facility] Stop: 08/07/24 08:59 Tramadol HCl (Tramadol Hcl 50 Mg Tablet) 25 - 50 mg PO Q4H PRN PRN Reason: Pain Stop: 08/06/24 22:39
--- NOTE | 2024-07-08 08:32 | Cardiology Consultation ---
Date of Consultation July 08, 2024 Assessment & Plan (1) New onset a-fib: Plan Assessment: 64 year old male presented to the ER with concerns of some URI symptoms and associated palpitations. Found to be in new onset A-fib with RVR Plan: New onset A-fib. -Remains A-fib with slight improvement in rates. patient is very anxious about this diagnosis and significant education regarding Atrial fibrillation was provided. -Etiology may be s/t significant stressors as well as an acute URI illness. chest xray notes Bronchitis. Continued management per primary team. -Echocardiogram shows preserved LVEF, no wall motion abnormalities. It does demonstrate a mildly dilated left atrium which leads us to question if he has been having A-fib events for a longer period of time. There is also presence of mild to moderate mitral valve disease. -Rates now controlled. Continue Lopressor 25mg by mouth twice daily -Continue Heparin gtt at this time. CHADS-2 VASC score 1. -Continue to monitor on telemetry during course of hospitalization -Euvolemic on exam -BP with significant elevation at time of admission, now controlled. Continue amlodipine, Lopressor and losartan at this time. Echo does show evidence of moderate LVH. Case has been discussed with Dr. Rankin. Further recommendations regarding plan of care as per his assessment. I spent a total of 40 minutes on the date of service in preparation, delivery, documentation of the care provided to the patient excluding any time spent in the performance of separately billed services. [place] [facility] Cardiology [facility] Supervising Physician Co-Signing Physician Notes I have personally performed a history and physical examination on the patient. I have reviewed the advance practitioner's documentation, and I agree with, and take responsibility for the plan of care. 64-year-old male admitted with possible viral URI and paroxysmal atrial fibrillation. Rate improved with oral metoprolol. IV anticoagulation initiated. Resting echocardiogram demonstrates preserved LV systolic function, hypertensive heart disease, without significant valvular pathology. Natural history, pathophysiology, and stroke risk associated with atrial fibrillation discussed with patient and his mother at length. Recommend beta- tristan therapy and oral anticoagulation with Eliquis. Patient agreeable. Cardiology follow-up outpatient in approximately 2 weeks. If he remains in atrial fibrillation, elective external direct-current cardioversions will be considered after 4 weeks of adequate anticoagulation. All questions answered to patient's satisfaction. He may be transition to Toprol-XL 50 mg daily at time of discharge. Continue treatment of hypertension with losartan and amlodipine. I spent a total of 45 minutes on the date of service in preparation, delivery, and documentation of the care provided to this patient, excluding any time spent in the performance of separately billed services. Nolan Rankin DO, [facility] History of Present Illness Reason for Consultation: Atrial fibrillation Requesting Physician: Maribell lynn Attending Physician: Isiah Hand MD History of Present Illness HPI: Patient is a 64 year old male with PMHx significant for HTN and prior tobacco use that presents to the ER with intermittent palpitations. He reports that he has had some sinus congestion with a dry cough over the last few days. Also endorses significant stress due to recent break-up with his significant other. BP well above target upon arrival Systolic 180's. EKG on admission shows atrial flutter with 2:1 AV conduction. LVH Rate 132bpm Repeat EKG approx [address] Rate 147 Chest xray suggestive of Bronchitis. No evidence of pleural effusion Trop negative x1 Patient received IV Cardizem in the ER. Placed on heparin gtt Review of telemetry shows A-fib rate 100-113bpm He is resting comfortably in bed and his mother is at bedside. Patient initially denies any acute illness, but then reports that he has had some mild congestion and a persistent dry cough for the past week. He also endorses being under significant personal stress. Mother states that his anxiety is quite elevated. He is watching his telemetry pocket monitor asking about his heart rate being elevated. currently 102. Denies any chest pain or pressure. Does endorse feeling a "fast heart beat", but no shortness of breath, no lower extremity edema and no near syncope. Allergies Allergy/AdvReac Type Severity Reaction Status Date / Time amoxicillin Allergy Mild Verified 05/22/23 10:13 sulfamethoxazole AdvReac Mild Verified 05/22/23 10:13 [From Bactrim] trimethoprim [From Bactrim] AdvReac Mild Verified 05/22/23 10:13 Home Medications Medication Instructions Recorded Confirmed Type amlodipine 5 mg tablet 5 mg PO DAILY 07/07/24 07/07/24 History losartan 50 mg tablet 50 mg PO DAILY 07/07/24 07/07/24 History Patient History Medical History Clavicle fracture Epididymitis Surgical History History of mandibular surgery Family History Father Prostate cancer Hypertension Heart disease Mother Hypertension Social History Smoking Status: Never smoker Tobacco Type: Declines Hx Alcohol Use: Yes Alcohol type: beer and wine Hx Substance Use: No Preferred Language: Nepali Communication Ability: Effective Soundscriber Mechanic Required: No Beliefs That Will Affect Care: None Current Living Situation: Parent Other Information That Helps Us Care for You: No Feels Safe at Home: Yes Safety Concerns: Feels Safe At This Time Assistive Devices: Glasses Review of Systems Review of Systems: All systems reviewed & are unremarkable except as noted in HPI & below Physical Exam Constitutional: well developed and well nourished; no acute distress and not ill appearing Neck: normal visual inspection and trachea midline Respiratory: normal respiratory effort and + cough (dry non-productive); no respiratory distress and no labored breathing Auscultation: + wheezes (faint exp wheeze noted in bilateral upper lobes ); no crackles, no rales and no rhonchi Cardiovascular: Rate/Rhythm: + tachycardic and + irregularly irregular Heart Sounds: normal S1 and normal S2; no murmur Vessels: dorsalis pedis pulses present; no JVD Extremities: no edema Skin: no rashes, warm and dry Psychiatric: Orientation: alert and oriented x 3 Affect: + anxious affect Results & Data Vital Signs (Past 12 Hours) Vital Signs Temp Pulse Pulse Resp BP BP Pulse Ox 07/08/24 07:48 36.7 C 113 H 18 161/84 H 95 07/08/24 03:39 36.5 C 90 20 129/80 97 07/07/24 23:24 92 H 126/84 07/07/24 23:22 87 07/07/24 23:09 36.7 C 120 H 16 159/81 H 96 07/07/24 22:35 07/07/24 22:21 165 H 17 155/97 H 96 07/07/24 22:06 117 H 19 135/88 95 07/07/24 22:02 115 H 15 147/83 H 95 07/07/24 21:51 124 H 18 143/87 H 97 07/07/24 21:36 99 H 13 142/95 H 94 07/07/24 21:27 113 H 14 96 07/07/24 21:25 122 H 20 155/99 H 95 07/07/24 21:12 142 H 19 173/99 H 96 07/07/24 21:03 135 H 24 138/89 07/07/24 20:48 110 H 20 167/79 H 94 07/07/24 20:45 117 H 07/07/24 20:42 117 H 18 160/101 H 96 07/07/24 20:39 158 H 17 173/108 H 97 O2 Del Method 07/08/24 07:48 Room Air 07/08/24 03:39 Room Air 07/07/24 23:24 07/07/24 23:22 07/07/24 23:09 Room Air 07/07/24 22:35 Room Air 07/07/24 22:21 07/07/24 22:06 07/07/24 22:02 07/07/24 21:51 07/07/24 21:36 07/07/24 21:27 07/07/24 21:25 07/07/24 21:12 07/07/24 21:03 07/07/24 20:48 07/07/24 20:45 07/07/24 20:42 07/07/24 20:39 Laboratory Results Cardiac Enzymes 07/07/24 Range/Units 20:17 AST 13 (13-39) U/L Troponin I High Sens 8.4 (0-20) pg/ml Coagulation 07/07/24 Range/Units 20:17 PT 10.6 (9.0-12.0) Seconds APTT 26 (21-31) Seconds CBC 07/07/24 07/08/24 Range/Units 20:17 06:33 WBC 8.53 7.96 (4.8-10.8) K/ul RBC 5.08 4.46 L (4.70-6.10) M/uL Hgb 15.3 13.3 L (14.0-18.0) g/dl Hct 44.3 38.8 L (42.0-52.0) % Plt Count 275 247 (130-400) K/uL Neut # (Auto) 6.65 H 5.67 (1.40-6.50) K/uL Lymph # (Auto) 0.82 L 1.29 (1.20-3.40) K/uL [place] # (Auto) 0.97 H 0.91 H (0.11-0.59) K/uL Eos # (Auto) 0.04 0.05 (0.00-0.50) K/uL Baso # (Auto) 0.02 0.01 (0.00-0.20) K/uL Comprehensive Metabolic Panel 07/07/24 07/08/24 Range/Units 20:17 06:33 Sodium 135 L 137 (136-145) mmol/L Potassium 3.4 L 4.1 D (3.5-5.1) mmol/L Chloride 100 105 (98-107) mmol/L Carbon Dioxide 28 27 (21-32) mmol/L BUN 13 9 (6-23) mg/dl Creatinine 0.87 0.75 (0.6-1.4) mg/dl Glucose 108 H 104 H (70-99(Fasting)) mg/dl Calcium 9.2 9.1 (8.6-10.3) mg/dl AST 13 (13-39) U/L ALT 15 (7-52) U/L Alkaline Phosphatase 128 H (34-104) U/L Total Protein 8.5 H (6.0-8.3) gm/dl Albumin 4.4 (3.4-5.0) gm/dl Intake and Output 07/07/24 07/08/24 07/08/24 22:59 06:59 14:59 Intake Total 600 / 900 300 / 900 198 / 198 Balance 600 / 900 300 / 900 198 / 198 Intake: IV 600 / 600 198 / 198 Heparin 06175 Unit/500 ml 25, 198 / 198 000 units In 500 ml @ 900 UNITS /HR 18 mls/hr IV .Q24H RYAN Rx#: [id number] Magnesium Sulfate / D5w 1 gm In 100 / 100 100 ml @ 100 mls/hr IV NOW STA Rx#:[id number] Sodium Chloride 0.9% 500 ml @ 500 / 500 999 mls/hr IV .Q31M ONE Rx#: [id number] Oral 300 / 300 Other: # Unmeasured Voids 1 Weight 81 kg 78.9 kg Weight Measurement Method Chair Scale Built in [facility] Diagnostic Findings Echocardiogram 06/28/2024 LVEF 60-65% Moderate concentric LVH Left Atrial mildly dilated Mild to moderate MR Mild TR No doppler findings to suggest pulmonary HTN
[2024-07-08] MEDS ORDERED: ENOXAPARIN INJ 40 MG/0.4 ML SYR SQ SCH (09:00)
[2024-07-08] MEDS ORDERED: POTASSIUM CHLORIDE 10 MEQ TABCR PO SCH (09:00)
[2024-07-08 09:09] LABS: Magnesium 2.3 mg/dl (1.7-2.4)
[2024-07-08] MEDS: amLODIPine BESYLATE 5 MG TAB PO SCH (09:20)
[2024-07-08] MEDS: METOPROLOL TARTRATE 25 MG TAB PO SCH (09:20)
[2024-07-08] MEDS: LOSARTAN POTASSIUM 50 MG TAB PO SCH (09:20)
--- NOTE | 2024-07-08 09:50 | Electrocardiogram Report ---
Test Reason : Blood Pressure : */* mmHG Vent. Rate : 132 BPM Atrial Rate : 264 BPM P-R Int : * ms QRS Dur : 78 ms QT Int : 302 ms P-R-T Axes : -26 52 -10 degrees QTcB Int : 447 ms Sinus tachycardia Left ventricular hypertrophy with repolarization abnormality Abnormal ECG No previous ECGs available Confirmed by Mario Snyder ([id number]) on 07/08/2024 9:49:43 AM Referred By: REFERRED SELF Confirmed By: Mario Snyder
--- NOTE | 2024-07-08 09:51 | Electrocardiogram Report ---
Test Reason : Blood Pressure : */* mmHG Vent. Rate : 147 BPM Atrial Rate : 147 BPM P-R Int : 112 ms QRS Dur : 76 ms QT Int : 342 ms P-R-T Axes : 9 61 49 degrees QTcB Int : 535 ms Sinus tachycardia Left ventricular hypertrophy with repolarization abnormality Abnormal ECG When compared with ECG of 07-Jul-2024 20:11, (unconfirmed) No significant change Confirmed by Mario Snyder ([id number]) on 07/08/2024 9:50:52 AM Referred By: REFERRED SELF Confirmed By: Mario Snyder
[2024-07-08 10:01] LABS: Adenovirus PCR Not Detected (NotDetected); Bordetella parapertussis PCR Not Detected (NotDetected); Bordetella pertussis PCR Not Detected (NotDetected); Chlamydia pneumoniae PCR Not Detected (NotDetected); Coronavirus 229E PCR Not Detected (NotDetected); Coronavirus CoV-2 (COVID19)PCR Not Detected (NotDetected); Coronavirus HKU1 PCR Not Detected (NotDetected); Coronavirus NL63 PCR Not Detected (NotDetected); Coronavirus OC43PCR Not Detected (NotDetected); Human Metapneumovirus PCR Not Detected (NotDetected); Influenza A PCR Not Detected (NotDetected); Influenza B PCR Not Detected (NotDetected); Mycoplasma pneumoniae PCR Not Detected (NotDetected); Parainfluenza Virus 1 PCR Not Detected (NotDetected); Parainfluenza Virus 2 PCR Not Detected (NotDetected); Parainfluenza Virus 3 PCR Not Detected (NotDetected); Parainfluenza Virus 4 PCR Not Detected (NotDetected); Respiratory Syncytial VirusPCR Not Detected (NotDetected); Rhinovirus/Enterovirus PCR Not Detected (NotDetected)
[2024-07-08] MEDS: HEPARIN SOD (PORCINE) 1000 UNIT/ML IV ONE (13:23)
[2024-07-08] MEDS: SODIUM CHLORIDE 0.65% NA SOLN 45 ML (OCEAN) STA (13:29)
[2024-07-08] MEDS: guaiFENesin 600 MG TABCR PO SCH (15:22)
[2024-07-08 18:33] LABS: ANTI-Xa, UFH(UnfractionatedHep 0.23 IU/ml (0.3-0.7)
[2024-07-09 01:24] LABS: ANTI-Xa, UFH(UnfractionatedHep 0.21 IU/ml (0.3-0.7)
[2024-07-09] MEDS: LORazepam 0.5 MG TAB PO PRN (07:30)
[2024-07-09 08:44] LABS: Hematocrit (blood only) 41.8 % (42.0-52.0); Hemoglobin 14.1 g/dl (14.0-18.0); Mean Corpuscular Hemoglobin 29.9 pg (25.0-34.0); Mean Corpuscular Hgb Conc 33.7 g/dL (32.0-36.0); Mean Corpuscular Volume 88.6 fL (80.0-100.0); Mean Platelet Volume 9.5 fL (9.4-12.4); Platelet Count 253 K/uL (130-400); RDW Coefficient of Variation 11.7 % (11.5-14.5); RDW Standard Deviation 37.8 fL (36.4-46.3); Red Blood Count 4.72 M/uL (4.70-6.10); White Blood Count 8.95 K/ul (4.8-10.8)
--- NOTE | 2024-07-09 08:49 | Cardiology Progress Note ---
Date of Service July 09, 2024 Assessment & Plan (1) New onset a-fib: Plan Assessment: 64 year old male presented to the ER with concerns of some URI symptoms and associated palpitations. Found to be in new onset A-fib with RVR Plan: New onset A-fib. -Remains A-fib with slight improvement in rates. patient is very anxious about this diagnosis and significant education regarding Atrial fibrillation was provided. -Etiology may be s/t significant stressors as well as an acute URI illness. chest xray notes Bronchitis. Continued management per primary team. -Echocardiogram shows preserved LVEF, no wall motion abnormalities. It does demonstrate a mildly dilated left atrium which leads us to question if he has been having A-fib events for a longer period of time. There is also presence of mild to moderate mitral valve disease. -Rates now controlled. Continue Lopressor 25mg by mouth twice daily -Continue Heparin gtt at this time. CHADS-2 VASC score 1. -Continue to monitor on telemetry during course of hospitalization -Euvolemic on exam -BP with significant elevation at time of admission, now controlled. Continue amlodipine, Lopressor and losartan at this time. Echo does show evidence of moderate LVH. 07/09/2024: -Patient resting in bed stable from a cardiac perspective. High anxiety, but refused his Ativan this morning. -Reviewed the pathophysiology in great detail again with patient and reassured him that his heart rates have remained controlled on telemetry, and he is not on anticoagulation to prevent a thrombo-embolic event. -Ok to stop heparin and transition over to Eliquis 5mg PO BID -Continue Metoprolol Tartrate 25mg PO BID. Explained to patient that we may further titrate this medicine outpatient. -No further cardiac workup needed during course of hospitalization. Will send message to our office to arrange for close follow up with our office when appropriate for discharge. Case has been discussed with Dr. Rankin. Further recommendations regarding plan of care as per his assessment. I spent a total of 30 minutes on the date of service in preparation, delivery, documentation of the care provided to the patient excluding any time spent in the performance of separately billed services. [place] [facility] Admission and Anticipated Discharge Date Admission Date: July 07, 2024 Supervising Physician Co-Signing Physician Notes I have personally performed a history and physical examination on the patient. I have reviewed the advance practitioner's documentation, and I agree with, and take responsibility for the plan of care. 64-year-old male admitted with possible viral URI and paroxysmal atrial fibrillation. Spontaneously converted to normal sinus rhythm at approximately 3 PM. Resting echocardiogram demonstrates preserved LV systolic function, hypertensive heart disease, without significant valvular pathology. Natural history, pathophysiology, and stroke risk associated with atrial fibrillation discussed with patient and his mother at length. Transition metoprolol to tartrate to Toprol-XL 50 mg daily. Discontinue IV heparin in favor of Eliquis 5 mg twice daily. Continue losartan and amlodipine as ordered. Patient may be discharged to home from a cardiovascular perspective. Outpatient cardiology follow-up in 1 to 2 weeks. I spent a total of 40 minutes on the date of service in preparation, delivery, and documentation of the care provided to this patient, excluding any time spent in the performance of separately billed services. Nolan Rankin DO, [facility] Subjective 07/09/2024: Patient seen and examined in follow up today. Feeling anxious. he reports that the hospitalist wants to discharge him home today and he does not want to go. He was recommended and prescribed Ativan for high anxiety, but refused it for the nurse this morning. Patient complains that he can feel his heart beat when he lays on his left side and he "does not like it". He also holds his telemetry box and watches his heart rate as he gets out of bed and is upset that his heart rate increases with activity. Labs, vitals, diagnostics, telemetry and documentation reviewed. Telemetry reviewed showing A-fib rates 80's to 90's with no acute events overnight. Review of Systems Review of Systems: All systems reviewed & are unremarkable except as noted in HPI & below Physical Exam Constitutional: well developed and well nourished; no acute distress and not ill appearing Neck: normal visual inspection and trachea midline Respiratory: normal respiratory effort and + cough (dry non-productive); no respiratory distress and no labored breathing Auscultation: + wheezes (faint exp wheeze noted in bilateral upper lobes ); no crackles, no rales and no rhonchi Cardiovascular: Rate/Rhythm: + tachycardic and + irregularly irregular Heart Sounds: normal S1 and normal S2; no murmur Vessels: dorsalis pedis pulses present; no JVD Extremities: no edema Skin: no rashes, warm and dry Psychiatric: Orientation: alert and oriented x 3 Affect: + anxious affect Results & Data Vital Signs (Past 12 Hours) Vital Signs Temp Pulse Pulse Resp BP Pulse Ox O2 Del Method 07/09/24 07:44 36.4 C L 106 H 20 134/80 96 Room Air 07/09/24 03:18 36.5 C 85 16 153/73 H 98 Room Air 07/08/24 23:46 36.7 C 78 20 141/88 H 97 Room Air 07/08/24 22:00 85 Laboratory Results CBC 07/09/24 Range/Units 08:12 WBC 8.95 (4.8-10.8) K/ul RBC 4.72 (4.70-6.10) M/uL Hgb 14.1 (14.0-18.0) g/dl Hct 41.8 L (42.0-52.0) % Plt Count 253 (130-400) K/uL Comprehensive Metabolic Panel 07/09/24 Range/Units 08:12 Sodium 134 L (136-145) mmol/L Potassium 3.9 (3.5-5.1) mmol/L Chloride 100 (98-107) mmol/L Carbon Dioxide 30 (21-32) mmol/L BUN 12 (6-23) mg/dl Creatinine 0.85 (0.6-1.4) mg/dl Glucose 161 H (70-99(Fasting)) mg/dl Calcium 9.2 (8.6-10.3) mg/dl Intake and Output 07/08/24 07/09/24 07/09/24 22:59 06:59 14:59 Intake Total 1574.233 / 2879.000 306.767 / 2879.000 Balance 1574.233 / 2879.000 306.767 / 2879.000 Intake: IV 1174.233 / 1679.000 306.767 / 1679.000 Heparin 39764 Unit/500 ml 25, 174.233 / 679.000 306.767 / 679.000 000 units In 500 ml @ 1,350 UNITS/HR 27 mls/hr IV .[id number] [facility] Rx#:[id number] Nss + 20Meq KCl 20 meq In 1,000 1000 / 1000 ml @ 75 mls/hr IV .[id number] ONE Rx#:[id number] Oral 400 / 1200 Other: # Unmeasured Voids 1 Weight 80.4 kg Weight [facility]
[2024-07-09 08:50] LABS: BUN Creatinine Ratio 14.1 (10-20); Calcium 9.2 mg/dl (8.6-10.3); Creatinine Clr Calc Pharmacy 92.3 ml/min; Magnesium 1.9 mg/dl (1.7-2.4); Phosphorus 1.6 mg/dl (2.5-4.9); Potassium 3.9 mmol/L (3.5-5.1)
[2024-07-09 08:56] LABS: ANTI-Xa, UFH(UnfractionatedHep 0.13 IU/ml (0.3-0.7)
[2024-07-09] MEDS ORDERED: SODIUM PHOSPHATE 3 MMOL/1 ML INFUSION IV STA (09:39)
[2024-07-09 11:00] VITALS: O2SAT 97
[2024-07-09] MEDS: SODIUM PHOSPHATE 9 MMOL in SODIUM CHLORIDE 0.9% 250 ML IV ONE (15:24)
[2024-07-09] MEDS: APIXABAN 5 MG TABLET PO SCH (15:25)
[2024-07-09 15:27] VITALS: BP 137/74; PULSE 95; RESP 16; TEMP 97.3
--- NOTE | 2024-07-09 15:49 | Discharge Summary ---
Date of Service July 09, 2024 Admission HPI Per Admitting Provider History obtained from patient, family, and records. Medical history significant for hypertension,, urticaria as per records, past tobacco use. Few days history of sinus congestion and dry cough symptoms. Patient later experienced intermittent palpitations without chest pain/SOB. Denies headache symptoms. Significant stress from recent break-up with his girlfriend. Denies suicidality. Patient noted to be in rapid A-fib at some point during ER evaluation. No prior episodes before as per patient although his mother has A-fib with history of ablation. IV Cardizem administered at the ER. Highest SBP of 180s documented at the ER. 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 Admission Exam Per Admitting Provider GENERAL: Anxious, no respiratory distress SKIN: Normal color, warm HEENT: Bespectacled, pink palpebral conjunctivae, no ptosis, dry buccal mucosa NECK : Supple, no tenderness CHEST : CTA, no tenderness HEART : Irregular, no obvious murmurs ABDOMEN: no distention, nontender EXTREMITIES : No LE swelling/tenderness, palpable pulses, no other conspicuous deformities noted NEUROLOGIC : Coherent, no facial asymmetry, no other gross focality Principal Diagnosis Atrial fibrillation, new onset Discharge Exam GENERAL: WD/WN in NAD HEENT: NC/AT, bespectacled, pink palpebral conjunctivae NECK : Supple, no tenderness CHEST : CTA, no tenderness HEART : regular, no obvious murmurs ABDOMEN: no distention, nontender EXTREMITIES : No LE swelling/tenderness, palpable pulses NEUROLOGIC : Coherent, no facial asymmetry, speech fluent, moves extremities SKIN: warm, dry Discharge Data Allergies Allergy/AdvReac Type Severity Reaction Status Date / Time amoxicillin Allergy Mild Verified 05/22/23 10:13 sulfamethoxazole AdvReac Mild Verified 05/22/23 10:13 [From Bactrim] trimethoprim [From Bactrim] AdvReac Mild Verified 05/22/23 10:13 Consultations 07/07/24 21:48 ED Decision to Admit Stat 07/07/24 22:40 Consult Cardiology Routine Hospital Course (1) New onset a-fib: Poss. secondary to uncontrolled hypertension secondary to anxiety Rule out viral illness Resp biofire negative CXR w/ poss. bronchitis Pt has some dry cough, seems resolving Admitted to PCU EKG Added beta-tristan to BP regimen/for rate control IV heparin for thromboembolic prophylaxis TTE - EF 60-65%, moderate concentric LVH, LA mildly dilated, mild to moderate regurg., doppler findings do not suggest pulm. HTN Cardiology consulted Re: New onset A-fib Anxiolytic as needed 07/09 - Discussed w/ cardiology - Pt converted to NSR at 3pm. Plan to discharge on Eliquis 5 bid and metoprolol succinate 50 mg daily. Outpt follow up with cardiology will be arranged as well. Hypokalemia replace and monitor Hyperglycemia - rule out DM, current A1c 5.5% past tobacco use Total Time Total Time Spent Total Time Spent (In Minutes): 40 Discharge Plan Discharge Items Patient Disposition: Home - Self-Care Reason For Visit: AF Discharge Diagnosis: Atrial fibrillation, new onset Activity: Per Instructions section Non-emergency contact: Primary Care Provider and Audio Engineer Call non-emergency contact if: you have any medication questions and your symptoms worsen Follow-up/Referrals: Jerome Marie [Primary Care Provider] - 07/12/24 9:20 am Diet: Regular and Heart Healthy Addtl Attending Provider Instructions: Follow up with your primary care doctor and machine operator helper. The appointment with your primary care doctor was scheduled for 07/12/2024. Take metoprolol and eliquis (blood thinner) as prescribed. Continue your other home medications (amlodipine , losartan). Pending Studies at Discharge: No Stand-Alone Forms: My [facility] [employer], Smoking Cessation Medications and DC Order Prescriptions: New Eliquis 5 mg tablet 5 mg PO BID Qty: 60 0RF metoprolol succinate [Toprol XL] 50 mg tablet extended release 24 hr 50 mg PO DAILY Qty: 30 0RF Continued amlodipine 5 mg tablet 5 mg PO DAILY losartan 50 mg tablet 50 mg PO DAILY Discharge Orders: Discharge Order (Routine); Ordered 07/09/24 Ordered By: Isiah Hand Admission Data Admit Date/Time: 07/07/24 21:57 Attending Provider: Isiah Hand Admit Provider: Fly Mike Primary Care Provider: Jerome Marie Other Providers: Fly Mike; Elke Olivo; Alec Gaming; Parker Cespedes; Nolan Rankin; Neil Mason; Mathew Tristan; Micaela Thao; Carmen Story; Nani Lopes; Elke Aguirre; Daniel Guadarrama; Bc Franklin; Ani Prado; Roxana Jaimes; Valentina Rubio; Alli Aguillon; Martin Meraz; Faby Vinson; Silvana Carreno
== END 2024-07-09 18:18 | disposition home or self-care (01) | DRG 310 ==
LOC: ED 19:57 → 2S 21:57